=== PATIENT | female | born 1980 | race Caucasian/White ===

== ENCOUNTER 2017-12-03 10:30 | Inpatient (IN) | payer BC ==
[~2017-12-03] VITALS: Ht 167.6 cm; Wt 75.0 kg
[2017-12-06] MEDS ORDERED: OXYTOCIN 30U/ 0.9% NaCL 500ML 500 ML IV ONE (05:40)
[2017-12-06] MEDS ORDERED: OXYTOCIN 30U/ 0.9% NaCL 500ML 500 ML IV PRN (05:40)
[2017-12-06] MEDS ORDERED: ONDANSETRON 2MG/ML, 2ML IVPush PRN (06:00)
[2017-12-06] MEDS ORDERED: FENTANYL PF 100 MCG/2ML IVPush PRN (06:00)
[2017-12-06] MEDS ORDERED: ALUMINUM/MAG/SIMETHICONE 30 ML UDC PO PRN (06:00)
[2017-12-06] MEDS ORDERED: FENTANYL PF 100 MCG/2ML IV PRN (06:00)
[2017-12-06 06:23] VITALS: BP 105/58
[2017-12-06 06:27] LABS: BASOPHILS # (AUTO) 0.03 x10^3/uL (0-0.1); BASOPHILS % (AUTO) 0 % (0-1); EOSINOPHILS # (AUTO) 0.13 x10^3/uL (0-0.4); EOSINOPHILS % (AUTO) 2 % (1-7); LYMPHOCYTES # (AUTO) 1.28 x10^3/uL (1-3.4); LYMPHOCYTES % (AUTO) 21 % (22-44); MD NO; MEAN CORPUSCULAR HEMOGLOBIN 34.5 pg (27.0-34.8); MEAN CORPUSCULAR HGB CONC 34.4 g/dL (32.4-35.8); MEAN CORPUSCULAR VOLUME 100.2 fL (80-100); MEAN PLATELET VOLUME 9.6 fL (7.4-10.4); MONOCYTES # (AUTO) 0.57 x10^3/uL (0.2-0.8); MONOCYTES % (AUTO) 9 % (2-9); NEUTROPHILS # (AUTO) 4.21 x10^3/uL (1.8-6.8); NEUTROPHILS % (AUTO) 68 % (42-75); PLATELET COUNT 148 x10^3/uL (130-400); RED BLOOD COUNT 3.63 x10^6/uL (3.82-5.3); RED CELL DISTRIBUTION WIDTH 13.2 % (9.6-15.2)
[2017-12-06] MEDS ORDERED: LEVO75TA5 PO (07:15)
[2017-12-06] MEDS ORDERED: FENTANYL/BUPIV./NS/PF 250 ML EPIDCONT SCH (08:50)
[2017-12-06] MEDS: LACTATED RINGERS 1,000 ML IV SCH ×2 (08:50→16:50)
[2017-12-06] MEDS ORDERED: LACTATED RINGERS 1,000 ML IVBOLUS PRN (09:00)
[2017-12-06] MEDS ORDERED: EPHEDRINE 50 MG/ML, 1ML IVPush PRN (09:00)
[2017-12-06] MEDS ORDERED: NALOXONE 0.4 MG/ML, 1ML IVPush PRN (09:00)
[2017-12-06] MEDS ORDERED: FENTANYL PF 100 MCG/2ML ONE (10:41)
[2017-12-06] MEDS ORDERED: NEWBORN KIT ONE (12:16)
[2017-12-06] MEDS: OXYTOCIN 30U/ 0.9% NaCL 500ML 500 ML IV SCH ×11 (12:17→23:45)
[2017-12-06] MEDS: PRENATAL VIT/IRON/FA 1 EACH TABLET PO SCH (12:30)
[2017-12-06] MEDS ORDERED: IBUPROFEN 600 MG TABLET PO PRN (12:30)
[2017-12-06] MEDS ORDERED: OXYcodone IR 5MG TABLET PO PRN (12:30)
[2017-12-06] MEDS ORDERED: METHYLERGONOVINE 0.2 MG/ML IM PRN (12:30)
[2017-12-06] MEDS ORDERED: MAGNESIUM HYDROXIDE 8%, 30ML UDC PO PRN (12:30)
[2017-12-06] MEDS ORDERED: MISOPROSTOL 200 MCG TABLET PR PRN (12:30)
[2017-12-06] MEDS ORDERED: OXYcodone/APAP 5/325MG TABLET PO PRN (12:30)
[2017-12-06 14:28] VITALS: BP 99/56
[2017-12-06 17:00] VITALS: BP 101/58
[2017-12-06 20:15] VITALS: BP 98/58
[2017-12-06 20:25] LABS: BASOPHILS # (AUTO) 0.02 x10^3/uL (0-0.1); BASOPHILS % (AUTO) 0 % (0-1); EOSINOPHILS # (AUTO) 0.01 x10^3/uL (0-0.4); EOSINOPHILS % (AUTO) 0 % (1-7); LYMPHOCYTES # (AUTO) 0.86 x10^3/uL (1-3.4); LYMPHOCYTES % (AUTO) 7 % (22-44); MD NO; MEAN CORPUSCULAR HEMOGLOBIN 34.8 pg (27.0-34.8); MEAN CORPUSCULAR HGB CONC 34.5 g/dL (32.4-35.8); MEAN PLATELET VOLUME 10.2 fL (7.4-10.4); MONOCYTES # (AUTO) 0.76 x10^3/uL (0.2-0.8); MONOCYTES % (AUTO) 6 % (2-9); NEUTROPHILS # (AUTO) 10.44 x10^3/uL (1.8-6.8); NEUTROPHILS % (AUTO) 86 % (42-75); PLATELET COUNT 132 x10^3/uL (130-400); RED BLOOD COUNT 3.54 x10^6/uL (3.82-5.3); RED CELL DISTRIBUTION WIDTH 13.3 % (9.6-15.2)
[2017-12-06] MEDS ORDERED: DOCUSATE 100 MG CAPSULE PO PRN (21:00)
[2017-12-06 22:59] VITALS: BP 94/55
[2017-12-07] MEDS: LACTATED RINGERS 1,000 ML IV SCH ×2 (00:50→07:39)
[2017-12-07] MEDS: OXYTOCIN 30U/ 0.9% NaCL 500ML 500 ML IV SCH ×8 (01:11→09:47)
[2017-12-07] MEDS ORDERED: LEVOTHYROXINE 75 MCG TABLET PO SCH (07:00)
[2017-12-07] MEDS: PRENATAL VIT/IRON/FA 1 EACH TABLET PO SCH (07:15)
[2017-12-07 08:15] VITALS: BP 100/62
[2017-12-07] MEDS ORDERED: IBUP-1222 PO (12:29)
== END 2017-12-07 15:10 | disposition home or self-care (01) | DRG 775 ==
LOC: LDIP 12-06 05:36 → 2NW 12-06 14:12
PROVIDERS: ADMIT Obstetrics & Gynecology; ATTEND Obstetrics & Gynecology
PROC: 10E0XZZ Delivery of Products of Conception, External Approach (ICD-10-PCS; principal; 2017-12-06)
PROC: 10907ZC Drainage of Amniotic Fluid, Therapeutic from Products of Conception, Via Natural or Artificial Opening (ICD-10-PCS; 2017-12-06)
PROC: 0U7C7ZZ Dilation of Cervix, Via Natural or Artificial Opening (ICD-10-PCS; 2017-12-06)
PROC: 3E0R3BZ Introduction of Anesthetic Agent into Spinal Canal, Percutaneous Approach (ICD-10-PCS; 2017-12-06)
PROC: 00HU33Z Insertion of Infusion Device into Spinal Canal, Percutaneous Approach (ICD-10-PCS; 2017-12-06)
PROC: 3E0234Z Introduction of Serum, Toxoid and Vaccine into Muscle, Percutaneous Approach (ICD-10-PCS; 2017-12-06)
DX: O24.420 Gestational diabetes mellitus in childbirth, diet controlled (principal); Z37.0 Single live birth; Z3A.40 40 weeks gestation of pregnancy; O99.284 Endocrine, nutritional and metabolic diseases complicating childbirth; E03.9 Hypothyroidism, unspecified; O69.81X0 Labor and delivery complicated by cord around neck, without compression, not applicable or unspecified; Z79.899 Other long term (current) drug therapy; Z88.6 Allergy status to analgesic agent; Z88.8 Allergy status to other drugs, medicaments and biological substances; Z23 Encounter for immunization; O62.2 Other uterine inertia
CPT/HCPCS: 36415; J2790; 82962; 85025; 85461; 86850; 86900; J3010; J2590

== ENCOUNTER 2018-01-09 17:10 | Emergency (ER) | payer BC ==
[~2018-01-09] VITALS: Ht 167.6 cm; Wt 65.3 kg
[~2018-01-09 17:10] MED LIST: IBUP-1222 PO; LEVO75TA5 PO
[2018-01-09 18:46] LABS: BASOPHILS # (AUTO) 0.06 x10^3/uL (0-0.1); BASOPHILS % (AUTO) 1 % (0-1); EOSINOPHILS # (AUTO) 1.05 x10^3/uL (0-0.4); EOSINOPHILS % (AUTO) 17 % (1-7); LYMPHOCYTES # (AUTO) 2.21 x10^3/uL (1-3.4); LYMPHOCYTES % (AUTO) 35 % (22-44); MD NO; MEAN CORPUSCULAR HEMOGLOBIN 33.8 pg (27.0-34.8); MEAN CORPUSCULAR HGB CONC 33.9 g/dL (32.4-35.8); MEAN CORPUSCULAR VOLUME 99.9 fL (80-100); MONOCYTES # (AUTO) 0.64 x10^3/uL (0.2-0.8); MONOCYTES % (AUTO) 10 % (2-9); NEUTROPHILS # (AUTO) 2.35 x10^3/uL (1.8-6.8); NEUTROPHILS % (AUTO) 37 % (42-75); PLATELET COUNT 152 x10^3/uL (130-400); RED BLOOD COUNT 4.31 x10^6/uL (3.82-5.3); RED CELL DISTRIBUTION WIDTH 12.3 % (9.6-15.2)
[2018-01-09 19:03] LABS: CALCIUM 9.3 mg/dL (8.5-10.1); CREATINE KINASE, TOTAL 43 U/L (26-192); CREATININE 0.59 mg/dL (0.55-1.02)
[2018-01-09 19:09] LABS: ANION GAP 8 mmol/L (5-15); CHLORIDE 108 mmol/L (98-107)
[2018-01-09 19:36] VITALS: BP 98/69
== END 2018-01-09 19:39 | disposition home or self-care (01) ==
LOC: ED 18:43
DX: O90.89 Other complications of the puerperium, not elsewhere classified (principal); M79.1 Myalgia; E03.9 Hypothyroidism, unspecified; Z88.6 Allergy status to analgesic agent
CPT/HCPCS: 36415; 80048; 82550; 85025; 93005; 93970; 99285

== ENCOUNTER → 2020-10-31 | Outpatient (CLI) | payer BC | END | disposition home or self-care (01) | LOC: SMMGROBB 10:34 → EDSTATUS 11:00 → RAD 11:53 | PROVIDERS: ATTEND Emergency Medicine | DX: M79.661 Pain in right lower leg (principal) ==